=== PATIENT | male | born 1970 | race Two or more races ===

== ENCOUNTER 2018-03-02 12:59 | Emergency (ER) | payer MEDICAID ==
[~2018-03-02] VITALS: Ht 1588.3 cm; Wt 63.6 kg
[2018-03-02 13:45] LABS: BASOPHILS % (AUTO) 0.5 % (0-1); EOSINOPHILS # (AUTO) 0.1 X10'3 (0-0.9); EOSINOPHILS % (AUTO) 1.1 % (0-6); HEMATOCRIT 42.4 % (42.0-52.0); HEMOGLOBIN 14.7 g/dl (14.0-17.9); LYMPHOCYTES # (AUTO) 1.2 X10'3 (1.1-4.8); LYMPHOCYTES % (AUTO) 16.9 % (21-51); MEAN CORPUSCULAR HEMOGLOBIN 31.5 PG (27.0-31.0); MEAN CORPUSCULAR HGB CONC 34.6 % (33.0-36.5); MEAN CORPUSCULAR VOLUME 91.1 FL (78-98); MEAN PLATELET VOLUME 9.2 FL (7.4-10.4); MONOCYTES # (AUTO) 0.7 X10'3 (0-0.9); MONOCYTES % (AUTO) 9.4 % (2-12); NEUTROPHILS # (AUTO) 5.1 X10'3 (1.8-7.7); NEUTROPHILS % (AUTO) 72.1 % (42-75); PLATELET COUNT 219 X10'3 (140-440); RED BLOOD COUNT 4.65 X10'6 (4.70-6.10); RED CELL DISTRIBUTION WIDTH 12.3 % (11.5-14.5); WHITE BLOOD COUNT 7.1 X10'3 (4.5-11.0)
[2018-03-02 14:01] LABS: ALANINE AMINOTRANSFERASE 72 U/L (12-78); ALBUMIN 3.4 G/DL (3.4-5.0); ALBUMIN/GLOBULIN RATIO 0.8 (1.1-1.5); ALKALINE PHOSPHATASE 83 IU/L (46-116); ANION GAP 14 (8-16); ASPARTATE AMINO TRANSFERASE 26 U/L (10-37); BILIRUBIN,TOTAL 0.3 MG/DL (0.1-1.0); BLOOD UREA NITROGEN 13 MG/DL (7-18); BUN/CREATININE RATIO 10.9 (5.4-32.0); CALCIUM 8.8 MG/DL (8.5-10.1); CHLORIDE 104 MMOL/L (99-107); CREATININE 1.19 MG/DL (0.60-1.10); GLUCOSE 155 MG/DL (70-104); POTASSIUM 3.4 MMOL/L (3.5-5.1); SODIUM 141 MMOL/L (135-145); TOTAL CARBON DIOXIDE 23.5 MMOL/L (24-32); TOTAL PROTEIN 7.5 G/DL (6.4-8.2); eGFR 66 ML/MIN
[2018-03-02 14:10] LABS: ETHANOL < 0.010 GM/DL (0.0-0.010)
[2018-03-02 14:19] LABS: URINE AMPHETAMINE SCREEN POSITIVE (Neg); URINE BARBITUATE SCREEN NEGATIVE (Neg); URINE BENZODIAZEPINES SCREEN NEGATIVE (Neg); URINE CANNABINOID SCREEN NEGATIVE (Neg); URINE COCAINE SCREEN NEGATIVE (Neg); URINE METHADONE SCREEN NEGATIVE (Neg); URINE OPIATE SCREEN NEGATIVE (Neg); URINE PHENCYCLIDINE SCREEN NEGATIVE (Neg)
[2018-03-02] MEDS ORDERED: OLANZapine 2.5MG tablet PO ONE (20:40)
[2018-03-02] MEDS ORDERED: lisinopril 10 MG tablet PO ONE (20:40)
[2018-03-02] MEDS: LORazepam 1 MG tablet PO PRN (21:09)
[2018-03-03] MEDS ORDERED: nicotine 14mg patch - 24hr TD ONE (05:30)
[2018-03-03] MEDS: OLANZapine 2.5MG tablet PO SCH (08:22)
[2018-03-03] MEDS: LORazepam 1 MG tablet PO PRN (08:22)
[2018-03-03] MEDS: traZODone 50mg tablet PO SCH (20:27)
[2018-03-04] MEDS: OLANZapine 2.5MG tablet PO SCH (08:07)
[2018-03-04] MEDS: nicotine 14mg patch - 24hr TD SCH (15:13)
[2018-03-04] MEDS: traZODone 50mg tablet PO SCH (20:00)
[2018-03-05] MEDS: LORazepam 1 MG tablet PO PRN (05:38)
[2018-03-05] MEDS: nicotine 14mg patch - 24hr TD SCH (08:00)
[2018-03-05] MEDS: OLANZapine 2.5MG tablet PO SCH (08:00)
[2018-03-05 09:53] VITALS: BP 133/83
== END 2018-03-05 09:15 | disposition home or self-care (01) ==
LOC: ER 13:00
DX: F15.10 Other stimulant abuse, uncomplicated (principal); F10.10 Alcohol abuse, uncomplicated; F17.210 Nicotine dependence, cigarettes, uncomplicated; Z56.0 Unemployment, unspecified
CPT/HCPCS: 36415; 80053; 80305; 80320; 84443; 85025; 99284